=== PATIENT | male | born 1960 | race Caucasian/White ===

== ENCOUNTER 2022-07-17 11:01 | Day surgery (SDC) | payer OTHER ==
[2022-07-17] MEDS ORDERED: Lidocaine 1% MPF 2 ML VIAL ONE (11:37)
[2022-07-17] MEDS ORDERED: EPINEPHrine 1 MG/ML AMP ONE (12:05)
[2022-07-17] MEDS ORDERED: Lidocaine 1% (PF) 30 ML VIAL ONE (12:05)
[2022-07-17] MEDS ORDERED: Bacitracin Zinc Ointment 30 gm TUBE ONE (12:05)
[2022-07-17] MEDS ORDERED: SUGAMMADEX SODIUM 200 MG/2 ML VIAL ONE (12:14)
[2022-07-17] MEDS ORDERED: fentaNYL Citrate/PF 100 MCG/2 ML SYRINGE ONE (12:14)
[2022-07-17] MEDS ORDERED: Rocuronium Bromide 10 MG/ML (10ML VIAL) ONE (12:42)
[2022-07-17] MEDS ORDERED: Ondansetron PF 4 MG/2 ML Vial ONE (12:42)
[2022-07-17] MEDS ORDERED: Dexamethasone 20 MG/5 ML VIAL ONE (12:42)
[2022-07-17] MEDS ORDERED: PROPOFOL 200 MG/20 ML VIAL ONE (12:42)
== END 2022-07-17 15:15 | disposition home or self-care (01) ==
LOC: SDC 11:01
PROVIDERS: ATTEND Specialist
PROC: 0CB90ZZ Excision of Left Parotid Gland, Open Approach (ICD-10-PCS; principal; 2022-07-17)
DX: K11.6 Mucocele of salivary gland (principal); F17.200 Nicotine dependence, unspecified, uncomplicated; Z85.038 Personal history of other malignant neoplasm of large intestine; Z79.83 Long term (current) use of bisphosphonates; Z79.899 Other long term (current) drug therapy; Z90.49 Acquired absence of other specified parts of digestive tract
CPT/HCPCS: 88307; C1776; J0171; J1100; J2001; J2405; J2704